=== PATIENT | male | born 1960 | race Caucasian/White ===

== ENCOUNTER 2018-07-04 21:11 | Emergency (ER) | payer OTHER ==
[2018-07-04 21:14] VITALS: BP 175/84; PULSE 71; TEMP 98; BMI 24.3
--- NOTE | 2018-07-04 21:35 | PDOC ---
History of Present Illness - General Chief Complaint: Eye Problem Stated Complaint: RIGHT EYE PROBLEM Time Seen by Provider: 07/04/18 21:25 - History of Present Illness Initial Comments: 07/04/18 21:29 57 y/o M w/o comorbidities presents for evaluation of right eye redness 2 hours. No associated pain or systemic symptoms. Past History - Past Medical History Allergies/Adverse Reactions: Allergies Allergy/AdvReac Type Severity Reaction Status Date / Time No Known Allergies Allergy Verified 07/04/18 21:14 Home Medications: Ambulatory Orders Lansoprazole [Prevacid -] 30 mg PO DAILY 05/02/13 COPD: No GI Disorders: Yes (GERD) - Immunization History Td Vaccination: Yes (04/2013) - Suicide/Smoking/Psychosocial Hx Smoking Status: No Smoking History: Never smoked Number of Cigarettes Smoked Daily: 0 Review of Systems - Review of Systems HEENTM: Yes: See HPI. No: Eye Pain, Blurred Vision, Recent change in vision, Double Vision, Cataracts *Physical Exam - Vital Signs Last Vital Signs Temp Pulse Resp BP Pulse Ox 98.0 F 71 18 175/84 H 100 07/04/18 21:12 07/04/18 21:12 07/04/18 21:12 07/04/18 21:12 07/04/18 21:12 - Physical Exam Comments: 07/04/18 21:34 HEAD: NC/AT EYES: Conjuntiva clear in the left eye right eye has a subconjunctival hemorrhage medially PERRL EOMI MS: Full ROM in all joints without edema NEUROLOGIC: No gross sensory or motor deficits, NVID SKIN: Normal color and temperature no lesions or rashes Moderate Sedation - Procedure Monitoring Vital Signs: Procedure Monitoring Vital Signs Temperature 98.0 F 07/04/18 21:12 Pulse Rate 71 07/04/18 21:12 Respiratory Rate 18 07/04/18 21:12 Blood Pressure 175/84 H 07/04/18 21:12 O2 Sat by Pulse Oximetry (%) 100 07/04/18 21:12 *DC/Admit/Observation/Transfer Diagnosis at time of Disposition: Subconjunctival hemorrhage - Discharge Dispostion Disposition: HOME Condition at time of disposition: Stable Decision to Admit order: No - Referrals Referrals: Isaiah Herron MD [Staff Physician] - - Patient Instructions Additional Instructions: Please follow-up with your primary care physician as well as ophthalmology in one to 2 days for further evaluation and treatment options. Return to the emergency room should symptoms worsen or go unresolved. He should expect this redness in her eye to last about 2 weeks may be even 3 weeks or longer. Avoid aspirin as well as anti-inflammatories such as Advil Motrin and Aleve. - Post Discharge Activity
== END 2018-07-04 22:00 | disposition home or self-care (01) ==
LOC: JERFT 21:11
DX: H11.31 Conjunctival hemorrhage, right eye (principal)
CPT/HCPCS: 99281-25